=== PATIENT | male | born 1960 | race Caucasian/White ===

== ENCOUNTER 2023-08-23 13:37 | Emergency (ER) | payer MEDICARE, SELFPAY ==
--- NOTE | ~2023-08-23 | CT_ITS ---
EXAMINATION: CT INNER EAR TEMPORAL BONES CLINICAL INFORMATION: Tenderness to palpation. Infection. COMPARISON: None. TECHNIQUE: Multidetector helical imaging was performed in the axial plane with generation of oblique axial and coronal reformatted projections. This CT examination was performed using dose optimization techniques as appropriate, variously including the following: *Automated exposure control *Adjustment of mA and/or kV according to patient size (this includes techniques or standardized protocols for targeted exams where dose is matched to indication/reason for exam; i.e. extremities or head) *Use of iterative reconstruction technique DLP: 260 mGy-cm. FINDINGS: There is soft tissue swelling involving the left external ear. The external auditory canals and tympanic membranes are normal. The ossicular chains are intact bilaterally. No osseous erosion is seen. No soft tissue abnormality is seen in the middle ear cavities. The mastoid air cells are well aerated. Cranial VII follows a normal course bilaterally. The inner ear structures and internal auditory canals are normal. The imaged portions of the intracranial contents are unremarkable. CT/CT mastoid IMPRESSION: Soft tissue swelling about the left external ear which may represent otitis externa. Mastoids and middle ear cavities are clear. No destructive changes are seen.
--- NOTE | 2023-08-23 13:40 | ED.EAR ---
HPI - Ear Problem General Chief complaint: Ear Problems Stated complaint: Sent by for Swollen L ear Time Seen by Provider: 08/23/23 14:03 Source: patient Mode of arrival: ambulatory Limitations: no limitations History of Present Illness HPI Narrative: Patient is a 62 year old assigned male at with a history of HIV and Hypothyroidism presenting to the emergency department today with left ear swelling and redness. Patient states that over the last 2 days the outside part of his left ear has continued to swell and be red. Patient states that he was seen at an urgent care who recommended he come to the ER, immediately. Patient states that he does use ear plugs at night and does not always switch to a new pair. Patient denies any dizziness, lightheadedness, abdominal pain, nausea, vomiting, fever, chills, blurry vision, double vision, loss of vision, chest pain, difficulty breathing, shortness of breath, back pain, night sweats, pain with urination, increased urinary frequency, increased urinary urgency, blood in his urine or stool, syncope or a near syncopal episode, recent trauma or falls, bowel incontinence, bladder incontinence, bowel retention, bladder retention, or any other complaints at this time. Location: left ear Duration: constant Severity: mild Relieving factors: nothing Exacerbating factors: nothing Discharge from ear: no Treatment prior to arrival: none Related Data Previous Rx's Medication Instructions Recorded amoxicillin 875 mg-potassium 1 tab PO BID 10 days #20 tabs 08/23/23 clavulanate 125 mg tablet Allergies Allergy/AdvReac Type Severity Reaction Status Date / Time Sulfa (Sulfonamide AdvReac Unknown Vomiting Verified 08/23/23 13:45 Antibiotics) Review of Systems Constitutional: Constitutional: Reports no additional constitutional complaints, Denies chills, Denies fever(s) and Denies night sweats Eyes: Eyes: Reports no additional eye complaints, Denies blurry vision, Denies change in vision, Denies diplopia, Denies eye discharge, Denies loss of vision and Denies eye pain ENT: Denies dizziness Comments: left external ear swelling and redness Cardiovascular: Cardiovascular: Reports no additional cardiovascular complaints, Denies chest pain, Denies lightheadedness, Denies Loss of Consciousness and Denies dyspnea Respiratory: Respiratory: Reports no additional respiratory complaints and Denies dyspnea Gastrointestinal: Gastrointestinal: Reports no additional gastrointestinal complaints, Denies abdominal pain, Denies melena, Denies hematochezia, Denies change in bowel habits and Denies change in stool character Genitourinary: Genitourinary: Reports no additional male genitourinary complaints, Denies hematuria, Denies oliguria, Denies difficulty urinating, Denies dysuria, Denies urinary frequency, Denies urinary hesitancy, Denies urinary incontinence and Denies urinary urgency Musculoskeletal: Musculoskeletal: Reports no additional musculoskeletal complaints, Denies numbness and Denies tingling Neurologic: Denies dizziness, Denies loss of vision, Denies numbness and Denies tingling Psychiatric: Psychiatric: Reports no additional psychiatric complaints Endocrine: Endocrine: Reports no additional endocrine complaints Hematologic/Lymphatic: Hematologic/Lymphatic: Reports no additional hematologic/lymphatic complaints Allergic/Immunologic: Allergic/Immunologic: Reports no additional allergic/immunologic complaints PMFSH Past Medical History Attestation statement: The following information was validated with the patient. Source: old records reviewed and nursing notes reviewed Social History Social History Advance Directives: No Advance Directives Information Provided: No Physical Exam Vital Signs: Vital Signs: Last Vital Signs Temp 96.8 F 08/23/23 13:43 Pulse 62 08/23/23 13:43 Resp 18 08/23/23 13:43 BP 148/94 H 08/23/23 13:43 Pulse Ox 96 08/23/23 13:43 O2 Del Method Room Air 08/23/23 13:43 BMI result Body Mass Index 24.6 Const: General: cooperative, no acute distress, alert and awake Nutritional Appearance: well nourished Orientation/consciousness: patient oriented x3 Limitations: no limitations HEENT: Head: Yes atraumatic Ears: hearing grossly normal bilaterally Outer ear/TM images: 1. diffuse redness of the left auricle as well as swelling present to the circled area, minimal fluctuance felt General nose exam: Normal external nose present, no nasal discharge noted and no epistaxis Face and sinus: Yes normal facial exam, No abrasion and No laceration Mouth: Normal oral and palatal mucosa present, no drooling and no muffled voice Eyes: General: appearance normal, both eyes and all related structures Periorbital: periorbital findings normal Eyelids: Yes eyelids normal Conjunctivae: conjunctivae normal Pupils: Equal, round and reactive pupils present EOM: EOMs intact bilaterally Neck: Neck: Yes normal visual inspection, Yes full ROM and Yes no lymphadenopathy Chest: Chest palpation & inspection: normal inspection of the chest Resp: Effort & Inspection: normal respiratory effort and able to speak in complete sentences GI: Inspection: Yes normal to inspection Neuro: General: patient oriented x3 and moves all extremities Cranial nerves: Yes Equal, round and reactive pupils present Cognition (Neuro): normal cognition Motor exam (neuro): 5/5 motor strength present throughout Sensory Exam: Normal double simultaneous stimulation for sensation Coordination: [id number] test normal Extrem: General: Yes normal to inspection, Yes full ROM and Yes capillary refill normal Psych: Appearance: grossly normal Mental Status: mental status grossly normal Affect: normal affect Attitude: cooperative Thought process: Normal thought process present Thought content: Normal thought content present Insight: Good insight present (Psych) Course Course Course Narrative: This is an RME: Additional HPI, ROS, PE not included below will be deferred to primary provider. Patient is a 62-year-old male who presents to the emergency department for evaluation of left ear pain and swelling x2 days, was seen at urgent care prior to arrival and advised to come to emergency department as he did a CT scan to evaluate for mastoiditis Plan: CT, labs Medications Administered Discontinued Medications Generic Name Dose Route Start Last Admin Trade Name Chinq PRN Reason Stop Dose Admin Piperacillin Sod/Tazobactam 50 mls @ 100 mls/hr 08/23/23 15:16 08/23/23 17:00 Sod 3.375 gm/ Sodium Chloride IV 08/23/23 15:45 Infused ONCE ONE Infusion Lidocaine HCl 1 appl 08/23/23 15:15 08/23/23 15:23 Lidocaine 4 % Cream Kit TOPICAL 08/23/23 15:16 1 appl ONCE ONE Administration Protocol Procedures Abscess I/D Site: other (ear) Side (if applicable): left Local Anesthetic: other anesthetic (topical LMX) Technique: needle aspiration Amount of fluid expressed (mL): 0 Sent for culture/gram staining?: No Irrigation: No Packing used?: none Medical Decision Making Medical Decision Making [facility] Narrative: Patient is a 62 year old assigned male at with a history of HIV and hypothyroidism presenting to the emergency department today with left external ear redness and swelling. Patient's physical exam was as noted in the physical exam portion of this note. Patient's blood work was unremarkable. Patient's CT head / mastoid showed no acute process. I spoke with my attending physician, Dr. Lindquist, who evaluated the patient and recommended attempting to incise and drain the most swollen area of the external ear, giving IV antibiotics, prescribing oral antibiotics, and having them follow up with a general surgeon on an outpatient basis. I explained my physical exam findings as well as all test results to the patient. I answered all questions asked by the patient. Patient's ear was numbed with topical LMX and I attempted to drain the swollen area with an 18g needle. Unfortunately, nothing was aspirated from the area. This swelling is likely secondary to an infectious / inflammatory process and not a discrete collection of infection such as a cyst or abscess. Patient was given IV Zosyn while in the department. I stressed the importance of the patient taking his medication as prescribed. I stressed the importance of the patient following up with his primary care provider and a general surgeon. I stressed the importance of the patient returning to the emergency department immediately if his symptoms were to worsen or if he were to develop any dizziness, shortness of breath, difficulty breathing, chest pain, blurry vision, loss of vision, nausea, vomiting, abdominal pain, fever, chills, back pain, or any other complaints. Patient verbalized agreement and understanding with this treatment plan and discharge. Differential Diagnosis Differential Diagnoses: The differential diagnosis associated with the presentation includes Cellulitis Abscess Ear swelling Ear pain Mastoiditis Admission/Observation Consideration of admission/observation: Escalation of care including admission/observation considered Patient would have been admitted to the hospital had his work up had any findings where hospital admission was appropriate and his clinical presentation warranted hospital admission. Lab Data [facility] Lab Attestation statement: I reviewed the patient's lab results. My interpretation of these results are in the [facility] Rationale portion of this note. 08/23/23 14:06 08/23/23 14:06 Labs: Lab Results 08/23/23 08/23/23 Range/Units 14:06 15:33 WBC 4.7 L (4.8-10.8) X10*3/uL RBC 4.82 (4.60-5.80) X10*6/uL Hgb 15.9 (14.0-18.0) g/dl Hct 45.8 (42.0-52.0) % MCV 95.0 (80.0-98.0) fL MCH 33.0 (27.0-33.0) pg MCHC 34.7 (31.0-36.0) g/dl RDW 12.2 (11.0-16.0) % Plt Count 198 (160-400) X10*3/uL MPV 9.8 (9.4-12.4) fL Immature Gran % (Auto) 0.2 (0.0-0.4) % Neut % (Auto) 50.4 (45-73) % Lymph % (Auto) 33.5 (20-40) % [place] % (Auto) 12.3 H (2-11) % Eos % (Auto) 3.2 (0-4) % Baso % (Auto) 0.4 (0-2) % Lymph # (Auto) 1.6 (1.2-4.9) X10*3/uL [place] # (Auto) 0.6 (0.1-1.2) X10*3/uL Eos # (Auto) 0.2 (0.0-0.4) X10*3/uL Baso # (Auto) 0.0 (0.0-0.2) X10*3/uL Abs Immat Gran (auto) 0.01 (0.00-0.03) X10*3/uL Absolute Neuts (auto) 2.3 (2.0-8.3) x10*3/uL Absolute Nucleated RBC 0.000 (0.0-0.012) X10*3/uL Nucleated RBC % (auto) 0.0 (0.0-0.2) /100WBC Sodium 140 (135-145) mmol/L Potassium 4.6 (3.3-5.1) mmol/L Chloride 108 (96-108) mmol/L Carbon Dioxide 26 (22-29) mmol/L Anion Gap 11 L (12-20) BUN 18 H (9-16) mg/dL Creatinine 0.97 (0.5-1.4) mg/dL Estim Creat Clear Calc 66.9 Estimated GFR > 60 Random Glucose 93 (60-115) mg/dL Lactic Acid 0.7 (0.5-2.0) mmol/L Calcium 8.8 (8.4-10.2) mg/dL Independent Interpretation I performed an independent interpretation of an: CT Scan Interpretation: My interpretation is in agreement with the radiologist's impression of this imaging study. EXAMINATION: CT INNER EAR TEMPORAL BONES CLINICAL INFORMATION: Tenderness to palpation. Infection. COMPARISON: None. TECHNIQUE: Multidetector helical imaging was performed in the axial plane with generation of oblique axial and coronal reformatted projections. This CT examination was performed using dose optimization techniques as appropriate, variously including the following: *Automated exposure control *Adjustment of mA and/or kV according to patient size (this includes techniques or standardized protocols for targeted exams where dose is matched to indication/reason for exam; i.e. extremities or head) *Use of iterative reconstruction technique DLP: 260 mGy-cm. FINDINGS: There is soft tissue swelling involving the left external ear. The external auditory canals and tympanic membranes are normal. The ossicular chains are intact bilaterally. No osseous erosion is seen. No soft tissue abnormality is seen in the middle ear cavities. The mastoid air cells are well aerated. Cranial VII follows a normal course bilaterally. The inner ear structures and internal auditory canals are normal. The imaged portions of the intracranial contents are unremarkable. CT/CT mastoid IMPRESSION: Soft tissue swelling about the left external ear which may represent otitis externa. Mastoids and middle ear cavities are clear. No destructive changes are seen. Dictated By: DAVID PAYTON MD Signed By: Electronically signed by DAVID PAYTON MD 08/23/23 5510 Radiology Impression Discussion of test interpretation with radiology: I have reviewed the radiologist's reading. Prescription Management I considered prescription management with: Antibiotic (patient prescribed an antibiotic for his left ear cellulitis) Chronic Conditions Patient?s care impacted by: Other (HIV (non-detectable)) Critical Care Time Critical Care Time Critical Care Time: Yes Total Critical Care Time: 45 Attestation: I spent 45 minutes of Critical Care Time with this patient. This does not include time spent on separately reported billable procedures. Discharge Plan Discharge Clinical Impression: Cellulitis Patient Disposition: Home, Self-Care Instructions: Cellulitis (DC) Additional Instructions: Take your antibiotic as prescribed. Follow up with your primary care provider and a general surgeon. Return to the emergency department immediately if your symptoms worsen or if you develop any dizziness, shortness of breath, difficulty breathing, chest pain, blurry vision, loss of vision, nausea, vomiting, abdominal pain, fever, chills, back pain, or any other complaints. Prescriptions: New amoxicillin-pot clavulanate 875-125 mg tablet 1 tab PO BID 10 Days Qty: 20 0RF Ref[place]: [facility] [place] Group] (Call to establish and follow up with a general surgeon. ) [facility] [place]] (Call to establish and follow up with a primary care provider. If you already have a primary care provider, please follow up with them.) [facility] [place] [facility] [Provider Group] (Call to establish and follow up with a primary care provider. If you already have a primary care provider, please follow up with them.) [facility] [place] [facility] [Provider Group] (Call to establish and follow up with a primary care provider. If you already have a primary care provider, please follow up with them.) Interventions: ED Discharge Assessment Last Done: 08/23/23 17:11 Discharge Date/Time: 08/23/23 17:12 Print Language: Libyan
[2023-08-23 13:43] VITALS: BP 148/94; PULSE 62; RESP 18; TEMP 36; O2SAT 96; BMI 24.6
[2023-08-23 14:13] LABS: MANUAL DIFF FLAG NO
[2023-08-23 14:14] LABS: Basophils Percent Auto 0.4 % (0-2); Eosinophils Absolute Auto 0.2 X10*3/uL (0.0-0.4); Eosinophils Percent Auto 3.2 % (0-4); Hematocrit 45.8 % (42.0-52.0); Hemoglobin 15.9 g/dl (14.0-18.0); Imm Gran Abs Auto 0.01 X10*3/uL (0.00-0.03); Imm Gran Pct Auto 0.2 % (0.0-0.4); Lymphocytes Absolute Auto 1.6 X10*3/uL (1.2-4.9); Lymphocytes Percent Auto 33.5 % (20-40); Mean Corpuscular HGB Conc 34.7 g/dl (31.0-36.0); Mean Platelet Volume 9.8 fL (9.4-12.4); Monocytes Absolute Auto 0.6 X10*3/uL (0.1-1.2); Monocytes Percent Auto 12.3 % (2-11); Neutrophils Absolute Auto 2.3 x10*3/uL (2.0-8.3); Neutrophils Percent Auto 50.4 % (45-73); Platelet Count 198 X10*3/uL (160-400); Red Blood Count 4.82 X10*6/uL (4.60-5.80); Red Cell Distribution Width 12.2 % (11.0-16.0); White Blood Count 4.7 X10*3/uL (4.8-10.8)
[2023-08-23 14:26] LABS: Anion Gap 11 (12-20); Blood Urea Nitrogen 18 mg/dL (9-16); Calcium 8.8 mg/dL (8.4-10.2); Carbon Dioxide 26 mmol/L (22-29); Chloride 108 mmol/L (96-108); Creatinine Clr Calc Pharmacy 66.9; Estimated Glomerular Filt Rate > 60; Glucose Random 93 mg/dL (60-115); Potassium 4.6 mmol/L (3.3-5.1); Sodium 140 mmol/L (135-145)
[2023-08-23] MEDS: Lidocaine 4 % Cream KIT 1 APPL TOPICAL (15:23)
[2023-08-23 15:53] LABS: Lactic Acid 0.7 mmol/L (0.5-2.0)
[2023-08-23] MEDS: Piperacillin Sodium/Tazobactam 3.375 GM in 0.9 % Sodium Chloride 50 ML IV (16:30)
== END 2023-08-23 17:12 | disposition home or self-care (01) ==
PROVIDERS: Nurse Practitioner Family; Physician Assistant Medical; Emergency Provider Emergency Medicine
DX: H60.12 Cellulitis of left external ear (principal)
CPT/HCPCS: 10160; 36415; 70481; 80048; 83605; 85025; 87040; 96365; 99283; 99284; J2543

== ENCOUNTER 2023-08-25 11:30 | Outpatient (AMB) | payer MEDICARE, SELFPAY ==
--- NOTE | 2023-08-25 11:31 | MHC.OFFVIS ---
Intake Intake Visit Reasons: swollen left ear, Cellulitis Intake Note: This patient presents for [facility] [place] follow-up for swollen left ear, cellulitis. Pt c/o;reports swelling, reports itchiness, reports no oozzing. Financial Compliance Examiner Required: No Accompanied by: Self / Same As Patient Allergies Sulfa (Sulfonamide Antibiotics) Adverse Reaction (Unknown, Verified 08/25/23 11:42) Vomiting Medication List - Last Reconciled 08/25/23 by Hong Evans MD amoxicillin-pot clavulanate 875-125 mg 1 tab PO BID 10 days [id number] ala 50-200-25 mg (Biktarvy) 1 tab PO DAILY bupropion HCl 150 mg PO QAM fluoxetine 20 mg PO DAILY levothyroxine (Synthroid) 50 mcg PO DAILY pitavastatin calcium (Livalo) 1 mg PO DAILY tizanidine 4 mg PO TID HPI swollen left ear, Cellulitis HPI Details 62-year-old male referred for an infection of his external ear. He said he went to the ER 2 days ago because of an area of swelling, pain redness on the external ear. He apparently had a needle aspiration of the area which only showed blood without any pus. He was started on oral antibiotics with Augmentin He says that he feels the area is much better. Describes some improvement with regards to the swelling and redness. He denies being a diabetic. He denies any fever or chills. [facility] Medical History (Updated 08/25/23 @ 12:07 by Hong Evans MD) Infection of external ear Review of Systems Const Denies chills and Denies fever(s) Card Denies chest pain, Denies dyspnea and Denies dyspnea on exertion Resp Denies cough, Denies dyspnea and Denies dyspnea on exertion GI Denies hematochezia and Denies change in bowel habits Denies hematuria and Denies difficulty urinating Musc Denies back pain and Denies limited range of motion Neuro Denies focal weakness and Denies convulsions Psych Denies depression and Denies mood swings Physical Exam Const General: comfortable and no acute distress Orientation/consciousness: patient oriented x3 HEENT Other: On the external ear at the anti tragus area is note of some swelling, about 8 mm, no fluctuance, mild redness, Neck Neck: Yes no lymphadenopathy Resp Auscultation: clear to auscultation bilaterally Cardio Rhythm: regular rhythm GI Palpation (GI): Soft to palpation, nontender and no guarding Neuro General: patient oriented x3 Assessment & Plan Assessment & Plan (1) Infection of external ear: Code(s): H60.399 - Other infective otitis externa, unspecified ear Plan: He has what appears to be an infection of the external ear as described above. He had been started on oral antibiotics 2 days ago and he states that this feels much better. He says that the pain, tenderness swelling has improved significantly. He does still have a little bit of swelling on the area. I advised him to do warm compresses. I told him that I would like to see him again next week to see how this is coming along as he may need an I and D if this does not improve. He did have a needle aspiration 2 days ago which did not reveal any pus. Coding Level of Care Code New Pt Level 3 (22014) Diagnoses Infection of external ear H60.399
== END 2023-08-25 12:07 | disposition home or self-care (01) ==
PROVIDERS: Visit Provider Surgery
DX: H60.399 Other infective otitis externa, unspecified ear (principal)
CPT/HCPCS: 99203

== ENCOUNTER → 2023-08-25 11:30 | Outpatient (BNVA) | payer MEDICARE, SELFPAY | PROVIDERS: Visit Provider Surgery | DX: H60.399 Other infective otitis externa, unspecified ear (principal) | CPT/HCPCS: 99202 ==